=== PATIENT | male | born 1965 | race Caucasian/White ===

== ENCOUNTER 2022-01-24 15:48 | Outpatient (REF) | payer OTHER, SELFPAY ==
--- NOTE | ~2022-01-24 | XR_ITS ---
EXAMINATION: XR BILATERAL KNEE AP STANDING, LATERAL AND SUNRISE VIEWS CLINICAL INFORMATION: Bilateral primary osteoarthritis of the knee COMPARISON: None TECHNIQUE: AP bilateral standing view of both knees as well as bilateral lateral and sunrise views of both knees. FINDINGS: Right knee: No fracture or dislocation. Joint spaces are maintained. There is increased suprapatellar soft tissue density likely due to overlying soft tissues rather than a joint effusion. Normal patellar alignment. Left knee: No fracture or dislocation. Joint spaces are maintained. There is increased suprapatellar soft tissue density likely due to overlying soft tissues rather than a joint effusion. Normal patellar alignment. XR/XR knee LT 2V IMPRESSION: No acute osseous abnormality of either knee.
--- NOTE | ~2022-01-24 | XR_ITS ---
EXAMINATION: XR BILATERAL KNEE AP STANDING, LATERAL AND SUNRISE VIEWS CLINICAL INFORMATION: Bilateral primary osteoarthritis of the knee COMPARISON: None TECHNIQUE: AP bilateral standing view of both knees as well as bilateral lateral and sunrise views of both knees. FINDINGS: Right knee: No fracture or dislocation. Joint spaces are maintained. There is increased suprapatellar soft tissue density likely due to overlying soft tissues rather than a joint effusion. Normal patellar alignment. Left knee: No fracture or dislocation. Joint spaces are maintained. There is increased suprapatellar soft tissue density likely due to overlying soft tissues rather than a joint effusion. Normal patellar alignment. XR/XR knee RT 2V IMPRESSION: No acute osseous abnormality of either knee.
--- NOTE | ~2022-01-24 | XR_ITS ---
EXAMINATION: XR BILATERAL KNEE AP STANDING, LATERAL AND SUNRISE VIEWS CLINICAL INFORMATION: Bilateral primary osteoarthritis of the knee COMPARISON: None TECHNIQUE: AP bilateral standing view of both knees as well as bilateral lateral and sunrise views of both knees. FINDINGS: Right knee: No fracture or dislocation. Joint spaces are maintained. There is increased suprapatellar soft tissue density likely due to overlying soft tissues rather than a joint effusion. Normal patellar alignment. Left knee: No fracture or dislocation. Joint spaces are maintained. There is increased suprapatellar soft tissue density likely due to overlying soft tissues rather than a joint effusion. Normal patellar alignment. XR/XR knee standing BI IMPRESSION: No acute osseous abnormality of either knee.
[2022-01-24 17:12] LABS: Hematocrit 31.3 % (42.0-52.0); Mean Corpuscular Volume 91.3 fL (80.0-98.0); PLT CLUMP 1; Red Blood Count 3.43 X10*6/uL (4.60-5.80); SCAN SMEAR FLAG 1
[2022-01-24 17:13] LABS: Basophils Absolute Auto 0.1 X10*3/uL (0.0-0.2); Basophils Percent Auto 0.9 % (0-2); Eosinophils Absolute Auto 0.2 X10*3/uL (0.0-0.4); Eosinophils Percent Auto 1.6 % (0-4); Hemoglobin 10.8 g/dl (14.0-18.0); Imm Gran Abs Auto 0.07 X10*3/uL (0.00-0.03); Imm Gran Pct Auto 0.7 % (0.0-0.4); Lymphocytes Absolute Auto 1.4 X10*3/uL (1.2-4.9); Lymphocytes Percent Auto 14.8 % (20-40); MANUAL DIFF FLAG SCAN; Mean Corpuscular HGB Conc 34.5 g/dl (31.0-36.0); Mean Corpuscular Hemoglobin 31.5 pg (27.0-33.0); Monocytes Absolute Auto 0.6 X10*3/uL (0.1-1.2); Monocytes Percent Auto 6.2 % (2-11); Neutrophils Absolute Auto 7.3 x10*3/uL (2.0-8.3); Neutrophils Percent Auto 75.8 % (45-73); Red Cell Distribution Width 12.6 % (11.0-16.0)
[2022-01-24 17:21] LABS: White Blood Count 9.7 X10*3/uL (4.8-10.8)
[2022-01-24 17:30] LABS: C Reactive Protein 0.45 mg/dL (< or = 0.50); Rheumatoid Factor < 15.0 IU/mL (<15.0)
[2022-01-24 17:33] LABS: Platelet Count 361 X10*3/uL (160-400); SLIDE REVIEW VERIFIED
[2022-01-24 17:40] LABS: Appearance Urine Clear; Color Urine Yellow; Glucose Urine UA Negative (Negative); Leukocyte Esterase Urine Negative (Negative); Nitrite Urine Negative (Negative); Specific Gravity - Urine <= 1.005 (1.005-1.025); Urine Blood Negative (Negative); Urine Ketones Negative (Negative); Urine Protein Negative (Neg-Trace)
[2022-01-24 17:51] LABS: TSH reflex Free T4 2.83 uIU/mL (0.32-4.0)
[2022-01-24 18:03] LABS: Erythrocyte Sedimentation Rate 57 MM/HR (0-15)
[2022-01-24 18:22] LABS: RBC Urine 0-2 /HPF (0-2); Squamous Epithelial Cell Urine 0-2 /HPF (0-2); WBC Urine 0-5 /HPF (0-5)
[2022-01-24 18:23] LABS: Bacteria Urine None Seen (None Seen); Hyaline Casts Urine 0-2 /LPF (0-2)
[2022-01-24 19:00] LABS: Creatinine Urine 52.28 mg/dL; Total Protein Urine Random < 7 mg/dL (<12)
[2022-01-25 04:09] LABS: HIV AB/AG Nonreactive (Nonreactive); HIV Num 1 0.07 S/CO (0.00-0.99)
[2022-01-25 06:09] LABS: Folate 6.6 ng/mL (> or = 4.0); Vitamin B12 335 pg/mL (200-900)
[2022-01-25 14:32] LABS: Iron 104 mcg/dL (45-160); Percent Iron Saturation 35 % (15-50); Total Iron Binding Capacity 297 mcg/dL (228-428); Unsaturated Iron Binding 193 ug/dL
[2022-01-25 14:52] LABS: Ferritin 1403 ng/mL (20-250)
[2022-01-26 07:37] LABS: Immunoglobulin G Subclass 1 976 mg/dL (382-929); Immunoglobulin G Subclass 2 795 mg/dL (241-700); Immunoglobulin G Subclass 3 148 mg/dL (22-178); Immunoglobulin G Subclass 4 90.3 mg/dL (4-86); Immunoglobulin G Total 1975 mg/dL (600-1640)
[2022-01-26 10:51] LABS: Complement C3 110 mg/dL (82-185)
[2022-01-26 12:51] LABS: Anti DNA DS Antibody <1 IU/mL; Anti-Centromere B Antibodies <1.0 NEG AI (<1.0 NEG); Antibody to SS-A Antigen >8.0 POS AI (<1.0 NEG); Antibody to SS-B Antigen <1.0 NEG AI (<1.0 NEG); SM/Ribonucleoprotein Ab <1.0 NEG AI (<1.0 NEG); Scleroderma 70 Antibody <1.0 NEG AI (<1.0 NEG); Smith Protein <1.0 NEG AI (<1.0 NEG)
[2022-01-26 14:37] LABS: IgA 634 mg/dL (47-310); IgG 2327 mg/dL (600-1640); IgM 30 mg/dL (50-300)
[2022-01-26 17:06] LABS: Cyclic Citrullinated Peptide <16 UNITS
[2022-01-27 10:03] LABS: Prot Elec - Albumin 4.2 g/dL (3.8-4.8); Prot Elec - Alpha1 0.4 g/dL (0.2-0.3); Prot Elec - Alpha2 0.9 g/dL (0.5-0.9); Prot Elec - Beta 1 0.5 g/dL (0.4-0.6); Prot Elec - Beta 2 0.5 g/dL (0.2-0.5); Prot Elec - Gamma 2.1 g/dL (0.8-1.7); Prot Elec - Total Protein 8.5 g/dL (6.1-8.1)
[2022-01-27 14:12] LABS: Transferrin 237 mg/dL (188-341)
[2022-01-28 20:27] LABS: Anti Nuclear Antibody Screen POSITIVE (NEGATIVE)
[2022-01-29 15:12] LABS: Vitamin D 25-OH, D2 <4 ng/mL; Vitamin D 25-OH, D3 23 ng/mL; Vitamin D 25-OH, Total 23 ng/mL (30-100)
[2022-01-30 10:42] LABS: Angiotensin Converting Enzyme 19 U/L (9-67)
== END 2022-01-24 15:49 | disposition home or self-care (01) ==
LOC: HO.XRAY 15:48
PROVIDERS: PCP Nurse Practitioner Family; Visit Provider Student in an Organized Health Care Education/Training Program
DX: Z13.21 Encounter for screening for nutritional disorder (principal); Z11.4 Encounter for screening for human immunodeficiency virus [HIV]; M17.0 Bilateral primary osteoarthritis of knee; M35.09 Sjogren syndrome with other organ involvement; R53.83 Other fatigue; D86.9 Sarcoidosis, unspecified; D53.9 Nutritional anemia, unspecified
CPT/HCPCS: 36415; 73560; 73565; 81001; 82164; 82306; 82550; 82607; 82728; 82746; 82784; 83540; 84156; 84165; 84443; 84466; 85025; 85652; 86038; 86039; 86140; 86160; 86200; 86225; 86235; 86334; 86431; 87389

== ENCOUNTER 2022-02-04 09:04 | Outpatient (REF) | payer OTHER, SELFPAY ==
[2022-02-04 11:19] LABS: Ferritin 1430 ng/mL (20-250)
[2022-02-04 11:26] LABS: Alanine Aminotransferase 22 U/L (0-40); Albumin Level 3.7 g/dL (3.5-5.0); Alkaline Phosphatase 169 U/L (39-117); Anion Gap 19 (12-20); Aspartate Amino Transferase 36 U/L (5-37); Bilirubin Total 1.2 mg/dL (0.0-1.0); Blood Urea Nitrogen 14 mg/dL (9-16); Calcium 8.9 mg/dL (8.4-10.2); Carbon Dioxide 19 mmol/L (22-29); Chloride 91 mmol/L (96-108); Estimated Glomerular Filt Rate 34; Glucose Random 93 mg/dL (60-115); Iron 156 mcg/dL (45-160); Percent Iron Saturation 54 % (15-50); Potassium 4.8 mmol/L (3.3-5.1); Sodium 124 mmol/L (135-145); Total Iron Binding Capacity 290 mcg/dL (228-428); Unsaturated Iron Binding 134 ug/dL
[2022-02-06 14:36] LABS: Immunoglobulin G Subclass 1 1055 mg/dL (382-929); Immunoglobulin G Subclass 2 874 mg/dL (241-700); Immunoglobulin G Subclass 3 142 mg/dL (22-178); Immunoglobulin G Subclass 4 86.2 mg/dL (4-86); Immunoglobulin G Total 1892 mg/dL (600-1640)
[2022-02-08 15:32] LABS: PEU-Protein Creat Ratio Rand 0.123 (0.025-0.148); PEU-Rand. Prot/Creat Ratio 123 mg/g creat (25-148); PEU-Random Ur. Gamma Globulin 0 %; PEU-Random Urine A1 Globulin 0 %; PEU-Random Urine A2 Globulin 0 %; PEU-Random Urine Albumin 100 %; PEU-Random Urine Beta Globulin 0 %; PEU-Random Urine Creatinine 106 mg/dL (20-320); PEU-Random Urine Protein 13 mg/dL (5-25)
== END 2022-02-04 09:05 | disposition home or self-care (01) ==
LOC: HO.LAB 09:04
PROVIDERS: PCP Nurse Practitioner Family; Visit Provider Student in an Organized Health Care Education/Training Program
DX: D64.9 Anemia, unspecified (principal); K11.1 Hypertrophy of salivary gland; M35.09 Sjogren syndrome with other organ involvement; R53.83 Other fatigue
CPT/HCPCS: 80053; 82570; 82728; 82784; 83540; 84156; 84166

== ENCOUNTER 2022-03-09 08:06 | Outpatient (REF) | payer OTHER, SELFPAY ==
[2022-03-09 10:39] LABS: MANUAL DIFF FLAG NO
[2022-03-09 10:45] LABS: Basophils Absolute Auto 0.1 X10*3/uL (0.0-0.2); Basophils Percent Auto 1.1 % (0-2); Eosinophils Absolute Auto 0.2 X10*3/uL (0.0-0.4); Eosinophils Percent Auto 3.2 % (0-4); Hematocrit 35.1 % (42.0-52.0); Hemoglobin 11.9 g/dl (14.0-18.0); Imm Gran Abs Auto 0.02 X10*3/uL (0.00-0.03); Imm Gran Pct Auto 0.3 % (0.0-0.4); Lymphocytes Absolute Auto 1.8 X10*3/uL (1.2-4.9); Lymphocytes Percent Auto 25.2 % (20-40); Mean Corpuscular HGB Conc 33.9 g/dl (31.0-36.0); Mean Corpuscular Hemoglobin 31.4 pg (27.0-33.0); Mean Corpuscular Volume 92.6 fL (80.0-98.0); Mean Platelet Volume 8.9 fL (9.4-12.4); Monocytes Absolute Auto 0.8 X10*3/uL (0.1-1.2); Monocytes Percent Auto 10.6 % (2-11); Neutrophils Absolute Auto 4.3 x10*3/uL (2.0-8.3); Neutrophils Percent Auto 59.6 % (45-73); Platelet Count 425 X10*3/uL (160-400); Red Blood Count 3.79 X10*6/uL (4.60-5.80); Red Cell Distribution Width 12.7 % (11.0-16.0); White Blood Count 7.3 X10*3/uL (4.8-10.8)
[2022-03-09 11:01] LABS: Alanine Aminotransferase 30 U/L (0-40); Albumin Level 3.9 g/dL (3.5-5.0); Alkaline Phosphatase 150 U/L (39-117); Anion Gap 16 (12-20); Aspartate Amino Transferase 50 U/L (5-37); Bilirubin Total 0.6 mg/dL (0.0-1.0); Blood Urea Nitrogen 13 mg/dL (9-16); Calcium 9.4 mg/dL (8.4-10.2); Carbon Dioxide 22 mmol/L (22-29); Chloride 97 mmol/L (96-108); Estimated Glomerular Filt Rate 58; Glucose Random 105 mg/dL (60-115); Potassium 4.8 mmol/L (3.3-5.1); Sodium 130 mmol/L (135-145); Total Protein 8.1 g/dL (6.5-8.0)
[2022-03-09 11:41] LABS: Erythrocyte Sedimentation Rate 45 MM/HR (0-15)
[2022-03-10 14:47] LABS: Complement C3 111 mg/dL (82-185)
[2022-03-14 13:22] LABS: Anti DNA DS Antibody <1 IU/mL
== END 2022-03-09 08:07 | disposition home or self-care (01) ==
LOC: HO.10HDL 08:06
PROVIDERS: Visit Provider Student in an Organized Health Care Education/Training Program
DX: M35.09 Sjogren syndrome with other organ involvement (principal)
CPT/HCPCS: 36415; 80053; 85025; 85652; 86140; 86160; 86225

== ENCOUNTER 2022-03-13 12:57 | Outpatient (REF) | payer OTHER, SELFPAY ==
--- NOTE | ~2022-03-13 | US_ITS ---
EXAMINATION: US SOFT TISSUE NECK CLINICAL INFORMATION: Sjogren syndrome with other organ involvement. COMPARISON: None. TECHNIQUE: Linear transducer grayscale and color Doppler examination of bilateral parotid glands. FINDINGS: Ultrasound imaging of bilateral parotid glands prior to scheduled parotid biopsy revealed diffuse homogeneous parotid gland without any focal lesion, mass or increased vascularity. The right parotid gland measures 5.1 x 1.9 x 3.9 cm and volume 20.1 mL. Left parotid gland measures 5.7 x 2.0 x 4.6 mL and volume 26.9 mL. No abnormal size lymph nodes or mass seen adjacent to the parotid glands. US/US soft tiss head and/or neck IMPRESSION: Normal parotid glands. No biopsy was performed. Results were conveyed to Dr. Cristiano Chin by phone immediately after the scan.
== END 2022-03-13 12:58 | disposition home or self-care (01) ==
LOC: HO.US 12:57
PROVIDERS: Visit Provider Student in an Organized Health Care Education/Training Program
DX: K11.1 Hypertrophy of salivary gland (principal)
CPT/HCPCS: 76536

== ENCOUNTER 2022-03-16 12:48 | Outpatient (REF) | payer OTHER, SELFPAY ==
--- NOTE | 2022-03-16 14:00 | PFT_ITS ---
FLOWS: FEV1 47% of predicted at 1.53 L. FVC 78% of predicted at 3.33 L. FEV1 to FVC ratio of 0.46. No bronchodilator response except in small to medium airways. LUNG VOLUMES: Total lung capacity 100% of predicted at 6.20 L, residual volume 146% of predicted at 2.86 L. Slow vital capacity 78% of predicted at 3.34 L. Expiratory reserve volume 58% of predicted at 0.69 L. Diffusion capacity is mildly decreased. IMPRESSION: Severe obstructive ventilatory defect with no bronchodilator response except in small to medium airways. Increased residual volume suggests air trapping. Decreased diffusion capacity suggests emphysema. MD AWILDA Syed/MODL / [id number]
== END 2022-03-16 12:49 | disposition home or self-care (01) ==
LOC: HO.RESP 12:48
PROVIDERS: PCP Nurse Practitioner Family; Visit Provider Student in an Organized Health Care Education/Training Program
DX: M35.09 Sjogren syndrome with other organ involvement (principal)
CPT/HCPCS: 94060; 94727; 94729

== ENCOUNTER 2022-12-27 15:23 | Outpatient (AMB) | payer OTHER, SELFPAY ==
--- NOTE | 2022-12-27 15:27 | A.OFFVIS_ITS ---
Intake Vital Signs 12/27/22 15:29 Height 5 ft 4 in Weight 141 lb 5.061 oz BMI 24.3 BP 110/62 Blood Pressure Location Lt brachial Position Sitting Pulse 63 Pulse Source Pulse Oximeter Temp 98.2 F Temp Source Skin Pulse Oximetry (%) 98 Intake Visit Reasons: SS Intake Note: * Pt seen today for SS follow up. Last seen March 2022 * States lot of things happened since March 2022, suffered [place] May 30, admitted at [facility]. Started on new meds, follows with cardiology Body Fitter Required: No Accompanied by: Self / Same As Patient Allergies No Known Allergies Allergy (Verified 12/27/22 15:31) Medication List - Last Reconciled 12/27/22 by Esha Callahan MD albuterol sulfate 90 mcg/actuation (ProAir HFA) 2 puffs inhalation Q6H PRN amlodipine 10 mg PO DAILY aspirin 81 mg PO DAILY atorvastatin 80 mg PO DAILY carvedilol 12.5 mg PO BID clonidine HCl 0.1 mg PO BEDTIME clopidogrel 75 mg PO QAM diclofenac sodium 1% (Voltaren Arthritis Pain) 4 grams topical QID fluticasone propion-salmeterol 500-50 mcg/dose (Wixela Inhub) 1 inh inhalation BID fluticasone propion-salmeterol 500-50 mcg/dose (Advair Diskus) 1 inh inhalation BID losartan 50 mg PO DAILY montelukast (Singulair) 10 mg PO DAILY [id number] mcg (Centrum Silver Men) 1 tab PO DAILY naltrexone 50 mg PO DAILY spironolactone 50 mg PO DAILY HPI HPI Comments History of Present Illness Details 57-year-old male with Sjogren's syndrome returns for follow-up. Doing well overall. States that he was admitted to the hospital in May 30, he had a heart attack, had stent placement, he also had other complications, he needed to be on dialysis briefly and had a collapsed lung after discharge patient quit alcohol. He feels very well currently. He has no complaints today. Denies any dry eyes or dry mouth. Denies any skin rashes. No joint pain. Initial history: 56-year-old male with past medical history of alcohol abuse disorder, asthma/COPD, history of tobacco smoking, hypertension is here for evaluation of positive SSA antibody. Patient's main complaint today is bilater al knee pain usually with getting up from seated position, worse with activity, no swelling or morning stiffness. He has worked in construction for many years. He has no other joint pain or swelling. Patient mentions having a dry mouth every once in a while, denies dental infections. Denies dry eyes. He stated that he lost about 30 lb over the last few years but he attributes it to eating less and working more. He has fatigue that started over the last few years but is not limiting him in any way. He denies fevers or night sweats. Denies Raynaud's, photosensitivity, blood or froth in urine. [facility] Medical History (Updated 12/27/22 @ 16:01 by Esha Callahan MD) Alcohol abuse CAD (coronary artery disease) Family History Father Hypertension Mother Thyroid condition Social History Household Members Other:: roommate Housing: Apartment Are you a primary auto care center manager to a significant other at home: No Do you presently have visiting nurse or other home services: No 75 years or older and lives alone: No Alcohol intake: former Patient Tobacco Use Status: Former Tobacco user Years Smoked: quit 10 years ago e-Cigarette/Vaping Use: Never Used Substance Use Type: Marijuana service: No Current occupational status: employed Current occupation: lead warehouse associate Review of Systems Eyes Denies dry eyes ENT Denies dry mouth Card Denies dyspnea Resp Denies dyspnea Musc Denies joint swelling and Denies stiffness Physical Exam Vital Signs: Last Vital Signs Temp 98.2 F 12/27/22 15:29 Pulse 63 12/27/22 15:29 BP 110/62 12/27/22 15:29 Pulse Ox 98 12/27/22 15:29 BMI result Body Mass Index 24.3 Const General: cooperative, healthy appearing, comfortable, no acute distress and well developed Nutritional Appearance: average body habitus Orientation/consciousness: patient oriented x3 HEENT Other: Bilateral parotid enlargement? with no warmth or tenderness.? Parotid glands are soft Mouth: moist mucous membranes Resp Effort & Inspection: normal respiratory effort and able to speak in complete sentences Cardio Rate: regular rate Skin General skin exam: no rashes or lesions noted Neuro Other: No tremulousness today General: patient oriented x3 Extrem Other: No synovitis. Normal nailfold capillaroscopy Bilateral Dupuytren contractures, limited extension of bilateral ring fingers. Otherwise no limitation of range of motion. Patient can use his hands normally General: Yes full ROM Assessment & Plan Assessment & Plan (1) Sjogren syndrome with other organ involvement: Code(s): M35.09 - Sjogren syndrome with other organ involvement Plan: 57-year-old male with Sjogren's (+++SSA, bilateral parotid enlargement). no sicca symptoms, labs show elevated ESR with hypergammaglobulinemia, no monoc lonal protein identified. IgG4 subclass within normal. No inflammatory arthritis. Will continue to monitor patient for development of any complications of Sjogren's that require specific treatment. Parotid ultrasound was unremarkable. Follow-up in 9 months (2) Alcohol abuse: Code(s): F10.10 - Alcohol abuse, uncomplicated Plan: Patient quit alcohol consumption since his complicated admission to the hospital earlier this year. I congratulated him and encouraged patient to remain sober Coding Level of Care Code Est Pt Level 3 (26397) Diagnoses Sjogren syndrome with other organ involvement M35.09 Alcohol abuse F10.10
[2022-12-27 15:29] VITALS: BP 110/62; PULSE 63; TEMP 36.8; O2SAT 98; BMI 24.3
== END 2022-12-27 15:58 | disposition home or self-care (01) ==
PROVIDERS: PCP Nurse Practitioner Family; Visit Provider Student in an Organized Health Care Education/Training Program
DX: M35.09 Sjogren syndrome with other organ involvement (principal); F10.10 Alcohol abuse, uncomplicated
CPT/HCPCS: 99213

== ENCOUNTER → 2022-12-27 15:23 | Outpatient (BNVA) | payer OTHER, SELFPAY | PROVIDERS: PCP Nurse Practitioner Family; Visit Provider Student in an Organized Health Care Education/Training Program ==

== ENCOUNTER 2023-10-10 16:02 | Outpatient (AMB) | payer OTHER, SELFPAY ==
[2023-10-10 16:09] VITALS: BP 104/60; PULSE 86; RESP 17; TEMP 36.6; O2SAT 98; BMI 22.8
--- NOTE | 2023-10-10 16:09 | MHC.OFFVIS ---
Vital Signs 10/10/23 16:09 Height 5 ft 4 in Weight 132 lb 15.02 oz BMI 22.8 BP 104/60 Blood Pressure Location Rt brachial Position Sitting Respiration 17 Pulse 86 Pulse Source Pulse Oximeter Temp 97.8 F Temp Source Skin Pulse Oximetry (%) 98 Oxygen Delivery Method Room Air Intake Visit Reasons: SS Account Support Manager Required: No Allergies No Known Allergies Allergy (Verified 10/10/23 16:09) Medication List - Last Reconciled 10/10/23 by Esha Callahan MD albuterol sulfate 90 mcg/actuation (ProAir HFA) 2 puffs inhalation Q6H PRN amlodipine 10 mg PO DAILY aspirin 81 mg PO DAILY atorvastatin 80 mg PO DAILY carvedilol 12.5 mg PO BID clonidine HCl 0.1 mg PO BEDTIME clopidogrel 75 mg PO QAM diclofenac sodium 1% (Voltaren Arthritis Pain) 4 grams topical QID fluticasone propion-salmeterol 500-50 mcg/dose (Wixela Inhub) 1 inh inhalation BID fluticasone propion-salmeterol 500-50 mcg/dose (Advair Diskus) 1 inh inhalation BID losartan 50 mg PO DAILY montelukast (Singulair) 10 mg PO DAILY [id number] mcg (Centrum Silver Men) 1 tab PO DAILY naltrexone 50 mg PO DAILY spironolactone 50 mg PO DAILY HPI Comments Details: 57-year-old male with Sjogren's syndrome returns for follow-up. States that he has been feeling great overall. Since after his heart attack he has improved. He has been staying away from heavy alcohol consumption. Has a drink every once in awhile. His knee pains are significantly improved. He uses CBD oil every once in awhile. He has been using inhalers. Gets short of breath with exertion but nothing new. Denies any dry eyes or dry mouth. No fever or weight loss Initial history: 56-year-old male with past medical history of alcohol abuse disorder, asthma/COPD, history of tobacco smoking, hypertension is here for evaluation of positive SSA antibody. Patient's main complaint today is bilateral knee pain usually with getting up from seated position, worse with activity, no swelling or morning stiffness. He has worked in construction for many years. He has no other joint pain or swelling. Patient mentions having a dry mouth every once in a while, denies dental infections. Denies dry eyes. He stated that he lost about 30 lb over the last few years but he attributes it to eating less and working more. He has fatigue that started over the last few years but is not limiting him in any way. He denies fevers or night sweats. Denies Raynaud's, photosensitivity, blood or froth in urine. PFSH Medical History CAD (coronary artery disease) Alcohol abuse Family History Father Hypertension Mother Thyroid condition Social History Household Members Other:: roommate Housing: Apartment Are you a primary pharmacy care coordinator to a significant other at home: No Do you presently have visiting nurse or other home services: No 75 years or older and lives alone: No Alcohol intake: former Patient Tobacco Use Status: Former Tobacco user Years Smoked: quit 10 years ago e-Cigarette/Vaping Use: Never Used Substance Use Type: Marijuana service: No Current occupational status: employed Current occupation: datawarehouse developer Review of Systems Eyes Denies dry eyes ENT Denies dry mouth Card Reports dyspnea on exertion Resp Reports dyspnea on exertion Musc Denies joint swelling and Denies stiffness Physical Exam Vital Signs: Last Vital Signs Temp 97.8 F 10/10/23 16:09 Pulse 86 10/10/23 16:09 Resp 17 10/10/23 16:09 BP 104/60 10/10/23 16:09 Pulse Ox 98 10/10/23 16:09 Oxygen Delivery Method Room Air 10/10/23 16:09 BMI result Body Mass Index 22.8 Const General: cooperative, healthy appearing, comfortable, no acute distress and well developed Nutritional Appearance: average body habitus Orientation/consciousness: patient oriented x3 HEENT Mouth: moist mucous membranes Resp Effort & Inspection: able to speak in complete sentences Auscultation: rhonchi and wheezes Cardio Rate: regular rate Skin General skin exam: no rashes or lesions noted Neuro Other: No tremulousness today General: patient oriented x3 Extrem Other: No synovitis. Normal nailfold capillaroscopy Bilateral Dupuytren contractures, limited extension of bilateral ring fingers. Otherwise no limitation of range of motion. Patient can use his hands normally General: Yes full ROM Assessment & Plan Assessment & Plan (1) Sjogren syndrome with other organ involvement: Code(s): M35.09 - Sjogren syndrome with other organ involvement Category: Medical Plan: 57-year-old male with presumed Sjogren's (+++SSA, hypergammaglobulinemia, intermittent bilateral parotid enlargement, no sicca symptoms, elevated ESR with hypergammaglobulinemia, no monoclonal protein identified) who presents for follow-up. Doing quite well overall. Patient has stayed away from heavy alcohol consumption an overall he feels much better overall. I do not see any signs of active immune illness on exam. There is no active synovitis. No sicca symptoms. No signs suggestive of a lymphoproliferative disorder. There is no fever or weight loss. Follow-up in 1 year. Blood work 2-3 weeks before the visit (2) Alcohol abuse: Code(s): F10.10 - Alcohol abuse, uncomplicated Category: Social Hx Plan: Patient significantly cut down alcohol consumption since his complicated admission to the hospital earlier this year. I congratulated him. Plan I spent 24 minutes reviewing patient's chart, evaluating patient, ordering diagnostic workup, counseling patient and documenting in the chart Orders: Orders Complete Blood Count Auto Diff 12 Months M32.9 - Systemic lupus erythematosus, unspecified Erythrocyte Sedimentation Rate 12 Months M32.9 - Systemic lupus erythematosus, unspecified Protein Electrophoresis, Serum 12 Months M32.9 - Systemic lupus erythematosus, unspecified UA w Microscopic 12 Months M32.9 - Systemic lupus erythematosus, unspecified Comprehensive Met. Panel 12 Months M32.9 - Systemic lupus erythematosus, unspecified C Reactive Protein 12 Months M32.9 - Systemic lupus erythematosus, unspecified Immunofixation Pnl, Serum 12 Months M32.9 - Systemic lupus erythematosus, unspecified Anti DNA DS Antibody 12 Months M32.9 - Systemic lupus erythematosus, unspecified Complement C3 12 Months M32.9 - Systemic lupus erythematosus, unspecified Complement C4 12 Months M32.9 - Systemic lupus erythematosus, unspecified Protein Creatinine Ratio, Ur 12 Months M32.9 - Systemic lupus erythematosus, unspecified DNA Double Stranded-Crithidia 12 Months M32.9 - Systemic lupus erythematosus, unspecified Rheumatoid Factor 12 Months M32.9 - Systemic lupus erythematosus, unspecified Coding Level of Care Code Est Pt Level 4 (91719) Diagnoses Sjogren syndrome with other organ involvement M35.09 Alcohol abuse F10.10
== END 2023-10-10 16:23 | disposition home or self-care (01) ==
LOC: HO.RHE 16:02
PROVIDERS: PCP Nurse Practitioner Family; Visit Provider Student in an Organized Health Care Education/Training Program
DX: M35.09 Sjogren syndrome with other organ involvement (principal); F10.10 Alcohol abuse, uncomplicated
CPT/HCPCS: 99214

== ENCOUNTER → 2023-10-10 16:02 | Outpatient (BNVA) | payer OTHER, SELFPAY | PROVIDERS: PCP Nurse Practitioner Family; Visit Provider Student in an Organized Health Care Education/Training Program ==

== ENCOUNTER 2024-10-15 15:50 | Outpatient (AMB) | payer OTHER, SELFPAY ==
--- NOTE | 2024-10-15 15:52 | MHC.OFFVIS ---
Vital Signs 10/15/24 15:55 Height 5 ft 6 in Weight 119 lb 0.794 oz BMI 19.2 BP 104/62 Blood Pressure Location Lt brachial Position Sitting Pulse 61 Pulse Source Pulse Oximeter Pulse Oximetry (%) 98 Oxygen Delivery Method Room Air Intake Visit Reasons: Sjogren's Intake Note: Patient presents for Sjogren's follow up. Allergies No Known Allergies Allergy (Verified 10/15/24 15:55) Medication List - Last Reconciled 10/15/24 by Sienna Dixon MD albuterol sulfate 90 mcg/actuation (ProAir HFA) 2 puffs inhalation Q6H PRN amlodipine 10 mg PO DAILY aspirin 81 mg PO DAILY atorvastatin 80 mg PO DAILY carvedilol 12.5 mg PO BID clonidine HCl 0.1 mg PO BEDTIME clopidogrel 75 mg PO QAM diclofenac sodium 1% (Voltaren Arthritis Pain) 4 grams topical QID fluticasone propion-salmeterol 500-50 mcg/dose (Wixela Inhub) 1 inh inhalation BID fluticasone propion-salmeterol 500-50 mcg/dose (Advair Diskus) 1 inh inhalation BID losartan 50 mg PO DAILY montelukast (Singulair) 10 mg PO DAILY [id number] mcg (Centrum Silver Men) 1 tab PO DAILY naltrexone 50 mg PO DAILY spironolactone 50 mg PO DAILY HPI Comments Details: Patient is a 59-year-old male with asthma/COPD, hypertension, hyperlipidemia, ETOH abuse, polyarticular osteoarthritis, and Sjogren's syndrome here today for follow up Interval History: Patient last seen 10/10/[address] Callahan. At that time he was following up for Sjogren's syndrome. Patient reports that he was feeling great overall. Decreased his alcohol consumption. Denies dry eyes or dry mouth. Rheumatologic History: presumed Sjogren's (+++SSA, hypergammaglobulinemia, intermittent bilateral parotid enlargement, no sicca symptoms, elevated ESR with hypergammaglobulinemia, no monoclonal protein identified) Initial history: 56-year-old male with past medical history of alcohol abuse disorder, asthma/COPD, history of tobacco smoking, hypertension is here for evaluation of positive SSA antibody. Patient's main complaint today is bilateral knee pain usually with getting up from seated position, worse with activity, no swelling or morning stiffness. He has worked in construction for many years. He has no other joint pain or swelling. Patient mentions having a dry mouth every once in a while, denies dental infections. Denies dry eyes. He stated that he lost about 30 lb over the last few years but he attributes it to eating less and working more. He has fatigue that started over the last few years but is not limiting him in any way. He denies fevers or night sweats. Denies Raynaud's, photosensitivity, blood or froth in urine. Current Rheumatology Medication(s): [facility] Medical History CAD (coronary artery disease) Alcohol abuse Family History Father Hypertension Mother Thyroid condition Social History Household Members Other:: roommate Housing: Apartment Are you a primary hearing care professional to a significant other at home: No Do you presently have visiting nurse or other home services: No 75 years or older and lives alone: No Alcohol intake: former Patient Tobacco Use Status: Former Tobacco user Years Smoked: quit 10 years ago e-Cigarette/Vaping Use: Never Used Substance Use Type: Marijuana service: No Current occupational status: employed Current occupation: warehouse operations associate Review of Systems Const Details: Review of Systems Constitutional: Denies fever, chills, weight loss ENT: Denies vision changes, eye pain or eye redness, dental caries, dry mouth GI: Denies nausea, vomiting, diarrhea, abdominal pain, change in BM Pulm: Denies SOB, [place], hemoptysis, wheezing Cards: Denies chest pain, palpitations Skin: Denies Raynaud's, rash, nail changes, photosensitivity, [employer]: Denies headaches, weakness, paresthesias, recurrent falls MSK: as per HPI All other systems reviewed and are unremarkable except noted above Physical Exam Vital Signs: Last Vital Signs Pulse 61 10/15/24 15:55 BP 104/62 10/15/24 15:55 Pulse Ox 98 10/15/24 15:55 Oxygen Delivery Method Room Air 10/15/24 15:55 BMI result Body Mass Index 19.2 Vital signs reviewed Physical Examination CONSTITUITIONAL Patient alert and cooperative. Well appearing and in no apparent painful distress HEENT Conjunctiva and sclera clear. ?Pupils equal round and reactive to light. ?No lymphadenopathy. ? CHEST/RESPIRATORY SYSTEM Normal respiratory effort and able to speak in complete sentences. ?Clear to auscultation bilaterally. ?No crackles, rales, rhonchi, wheezes heard. CARDIAC SYSTEM Regular rate and rhythm. ?S1 and S2 heard no murmurs. ?Radial pulses intact bilaterally MSK Hands: ?Able to make a fist. No synovitis noted to the MCPs, PIPs or DIPs. ?No tenderness to palpation of these joints. No deformities noted. ? Wrists: ?Full range of motion at the wrists without pain. ?No tenderness to palpation or synovitis noted to the wrists. Elbows: Full range of motion without pain. No tenderness, weakness, swelling, increased warmth or erythema. Shoulders: Full range of active range of motion without pain. No tenderness, weakness, swelling, increased warmth or erythema. Hips: Full range of motion without pain. Hip bursa: No tenderness to palpation Knees: ?Full range of motion. ?No tenderness, swelling, increased warmth or erythema.?No effusion or crepitations Ankles: Full range of motion. ?No tenderness, swelling, increased warmth or erythema.? Feet: ?Negative squeeze test. ?No tenderness to palpation or swelling of the MTPs. Tender points:?No tenderness to palpation of the bilateral trapezius, supraspinatus, greater trochanters, anterior costochondral junctions, bilateral gluteal areas, bilateral suboccipital muscle insertions SKIN Skin intact without rashes. Results Reviewed Results Reviewed: Awaiting blood work Assessment & Plan Assessment & Plan (1) Sjogren syndrome with other organ involvement: Comment: Presumed Sjogren's (+++SSA, hypergammaglobulinemia, intermittent bilateral parotid enlargement, no sicca symptoms, elevated ESR with hypergammaglobulinemia, no monoclonal protein identified) Code(s): M35.09 - Sjogren syndrome with other organ involvement Category: Medical Plan: #Sjogren's syndrome Patient is a 59-year-old male with presumed Sjogren's based on positive SSA, hypergammaglobulinemia, intermittent bilateral parotid enlargement and elevated ESR. Currently patient is asymptomatic with no signs or symptoms concerning for active synovitis or any active Sjogren's disease. We will continue to monitor him with yearly follow up. Plan - Follow up blood work - Continue to monitor off immunosuppression - RTC 1 year - Labs before visit: CBC, CMP, ESR, CRP melena SPEP, UA, upc, RF, C3, C4 Plan I spent 20 minutes reviewing the record and labs, taking a history, examining the patient, discussing the treatment plan, ordering diagnostic work up and documenting in the medical record Coding Level of Care Code Est Pt Level 3 (42096) Diagnoses Sjogren syndrome with other organ involvement M35.09
--- OUTSIDE RECORDS SUMMARY | 2024-10-15 15:52 | XMS_ITS | Clinical Summary ---
Author Organization [facility], Address [address] [place] [address] Phone Care Team Providers Care Noc Analyst Name Role Phone Colleen Barrera ERP ENGINEER-Arsenio Primary Care Provider [phone] Allergies No known active allergies Medications cloNIDine (CATAPRES) 0.1 MG tablet 0.1 mg in the morning and 0.1 mg in the evening. 2 Active losartan (COZAAR) 100 MG tablet Take 100 mg by mouth 1 (one) time each day Active fluticasone-bijan meterol (ADVAIR HFA) 230-21 MCG/ACT inhaler Inhale 2 puffs 2 (two) times a day Rinse mouth with water after use to reduce aftertaste and incidence of candidiasis. Do not swallow. Active montelukast (SINGULAIR) 10 MG tablet Take 10 mg by mouth every night Active amiodarone (PACERONE) 200 MG tablet Take 200 mg by mouth 1 (one) time each day Active atorvastatin (LIPITOR) 80 MG tablet Take 80 mg by mouth 1 (one) time each day Active carvedilol (COREG) 12.5 MG tablet Take 12.5 mg by mouth in the morning and 12.5 mg in the evening. Take with meals. Active clopidogrel (PLAVIX) 75 MG tablet Take 75 mg by mouth 1 (one) time each day Active apixaban (Eliquis) 5 MG tablet Take 5 mg by mouth in the morning and 5 mg in the evening. Active Active Problems Problem Noted Date Diagnosed Date Hypertensive disorder 07/19/2022 Stage 3b chronic kidney disease 04/13/2022 Resolved Problems Problem Noted Date Diagnosed Date Resolved Date Alcoholism 07/19/2022 07/19/2022 Chronic obstructive pulmonary disease 07/19/2022 07/19/2022 Immunizations Immunization Administration Dates Next Due Hepatitis B 02/15/2017,01/11/2017 Moderna SARS-COV-2 06/11/2021,11/20/2020 Td 04/11/2016 Tdap 04/11/2016 Family History Medical History Relation Comments Hypertension Father Relation Status Comments Father Social History Tobacco Use Types Packs/Day Years Used Date Smoking Tobacco: Former Cigarettes Tobacco Cessation:Counseling Given: Not Answered Sex and Gender Information Value Date Recorded Sex Assigned at Not on file Legal Sex Male 2:11 PM EDT Gender Identity Not on file Sexual Orientation Not on file Last Filed Vital Signs Vital Sign Reading Time Taken Comments Blood Pressure 102/62 07/24/2022 11:35 AM EST Pulse 68 07/24/2022 11:35 AM EST Temperature 37.1 ??C (98.7 ??F) 07/24/2022 11:[address] Respiratory Rate - - Oxygen Saturation - - Inhaled Oxygen Concentration - - Weight - - Height - - Body Mass Index - - Plan of Treatment Health Maintenance Due Date Last Done Comments Hepatitis B Vaccine (1 of 3 - 19+ 3-dose series) 1984 02/15/2017, 01/11/2017 Pneumococcal Vaccine: 50+ Ye ars (1 of 2 - PCV) 1984 Colorectal Cancer Screening: Annual FOBT 2014 Colorectal Cancer Screening: Colonoscopy 2014 Colorectal Cancer Screening: Sigmoidoscopy 2014 Influenza Vaccine (Season Ended) 2025 Insurance Care Teams Noc Analyst Relationship Specialty Start Date End Date Colleen Barrera FNP-C PCP - General Nurse Practitioner 02/16/22
[2024-10-15 15:55] VITALS: BP 104/62; PULSE 61; O2SAT 98; BMI 19.2
== END 2024-10-15 16:16 | disposition home or self-care (01) ==
LOC: HO.RHE 15:50
PROVIDERS: PCP Nurse Practitioner Family; Visit Provider Student in an Organized Health Care Education/Training Program
DX: M35.09 Sjogren syndrome with other organ involvement (principal)
CPT/HCPCS: 99213